=== PATIENT | male | born 1985 | race Caucasian/White ===

== ENCOUNTER → 2017-01-13 | Outpatient (CLI) | payer BC ==
[~2017-01-13] MED LIST: CIPR-255 PO; HYDR-5688 PO
--- NOTE | 2017-01-13 11:19 | DIAGNOSTIC IMAGING REPORT ---
ULTRASOUND RIGHT UPPER QUADRANT ABDOMEN CLINICAL HISTORY: Right upper quadrant abdominal pain. COMPARISON STUDY: No priors. TECHNIQUE: Real-time, grayscale, and color flow sonography of the right upper quadrant of the abdomen was performed. Images are reviewed in the transverse and longitudinal planes. FINDINGS: Liver: The liver is normal in size and echotexture. There is no intrahepatic biliary ductal dilatation. The main portal vein is patent. Gallbladder: The gallbladder is distended. Shadowing gallstones and biliary sludge are identified. A 2.3 cm stone appears to be lodged in the gallbladder neck. The gallbladder wall is thickened measuring up to 4 mm. Trace pericholecystic fluid is identified and a sonographic Sue's sign is present. The common bile duct measures up to 0.3 cm in diameter. Pancreas: Visualized portions of the pancreatic head and body are normal in appearance. Right kidney: Survey images of the right kidney demonstrate normal size and echotexture. There is no hydronephrosis. Ascites: None. IMPRESSION: Cholelithiasis with evidence of acute cholecystitis. Surgical consultation is advised. Electronically signed by: Garfield Dye M.D. 01/13/2017 11:17 AM Dictated Date/Time: 01/13/2017 11:16 AM
== END | disposition home or self-care (01) ==
LOC: C.ULTR 10:37
PROVIDERS: ATTEND Family Medicine
DX: K80.00 Calculus of gallbladder with acute cholecystitis without obstruction (principal)

== ENCOUNTER 2017-01-15 09:20 | Observation (INO) | payer BC ==
[~2017-01-15] VITALS: Ht 182.9 cm; Wt 94.0 kg
[2017-01-15] VITALS (9 sets, daily range): BP systolic 124–142; BP diastolic 75–89; PULSE 58–77; TEMP 36.6–37.2; O2SAT 96–100; Ht 182.9 cm; Wt 94.0 kg
--- NOTE | 2017-01-15 10:59 | History and Physical ---
History & Physical Date Jan 15, 2017. Chief Complaint abd pain History of Present Illness The patient is a 31 year old male with complaints of upper abd pain and more to RUQ recent findings of Lg gallstones with one in neck of gallbladder and wall edema c/w acute chlolecystitis Additional History Hepatic Disease: No Kidney Disease: No Hypertension: No Heart Disease: No Allergies Coded Allergies: No Known Allergies (Unverified , 12/26/14) Home Medications No Active Prescriptions or Reported Meds Physical Examination Skin: warm/dry Eyes: sclerae normal Head: atraumatic Neck: supple Respiratory/Chest: no respiratory distress Cardiovascular: regular rate, rhythm Abdomen / GI: normal bowel sounds (mild RUQ tenderness) Extremities: normal inspection Neurologic/Psych: alert Diagnosis acute cholecystitis Plan of Treatment admit for laparoscopic cholecystectomy, observation
[2017-01-15] MEDS ORDERED: CEFOXITIN SOD 2 GM VIAL IV STA (11:20)
[2017-01-15] MEDS ORDERED: ONDANSETRON INJ 2 MG/ML 2 ML VIAL IV PRN ×2 (11:30→15:45)
[2017-01-15] MEDS ORDERED: PROMETHAZINE HCL INJ 12.5 MG in SODIUM CHLORIDE 0.9% 50ML 50 ML IV PRN (11:30)
[2017-01-15] MEDS ORDERED: HYDROmorphone INJ 1 MG/ML SYR IV PRN ×2 (11:30→15:45)
[2017-01-15] MEDS ORDERED: PROMETHAZINE HCL INJ 25 MG in SODIUM CHLORIDE 0.9% 50ML 50 ML IV PRN (11:30)
[2017-01-15] MEDS ORDERED: CEFOXITIN IV 2,000 MG in DEXTROSE 5% 50ML 50 ML IV ONE (12:00)
[2017-01-15] MEDS: LACTATED RINGER'S 1000ML 1,000 ML IV SCH (12:04)
[2017-01-15] MEDS ORDERED: IV FLUIDS COMPLETED PRN (12:30)
[2017-01-15] MEDS ORDERED: CEFOXITIN SOD 2 GM VIAL ONE (15:17)
[2017-01-15] MEDS ORDERED: BUPIVACAINE 0.5 % 5 MG/1 ML MPF 30ML VIAL ONE (15:17)
[2017-01-15] MEDS ORDERED: FENTANYL CITRATE INJ 50 MCG/1 ML 2 ML VIAL ONE ×2 (15:20→16:06)
[2017-01-15] MEDS ORDERED: MIDAZOLAM HCL 1 MG/ML 2ML VIAL ONE (15:20)
[2017-01-15] MEDS ORDERED: LACTATED RINGER'S 1000ML 1,000 ML IV PRN (15:41)
[2017-01-15] MEDS ORDERED: METOCLOPRAMIDE HCL INJ 5 MG/ML 2 ML VIAL IV PRN (15:45)
[2017-01-15] MEDS ORDERED: DiphenhydrAMINE HCL 50 MG/ML VIAL IV PRN (15:45)
[2017-01-15] MEDS ORDERED: PROPOFOL IV EMULSION 10 MG/ML 20 ML VIAL IV ONE (16:25)
[2017-01-15] MEDS ORDERED: ONDANSETRON INJ 2 MG/ML 2 ML VIAL ONE (16:25)
[2017-01-15] MEDS ORDERED: GLYCOPYRROLATE INJ 0.2 MG/ML VIAL ONE (16:25)
[2017-01-15] MEDS ORDERED: LIDOCAINE HCL 2% 2 ML VIAL (20MG/ML) ONE (16:25)
[2017-01-15] MEDS ORDERED: ROCURONIUM BROMIDE 10 MG/ML 5 ML VIAL ONE (16:25)
[2017-01-15] MEDS ORDERED: KETOROLAC TROMETHAMINE 30 MG/ML VIAL ONE (16:25)
[2017-01-15] MEDS ORDERED: NEOSTIGMINE METHYLSULFATE 5 MG/5 ML SYR ONE (16:25)
[2017-01-15] MEDS ORDERED: DEXAMETHASONE SOD INJ 4 MG/ML VIAL ONE (16:25)
--- NOTE | 2017-01-15 17:14 | [facility] Post Operative Brief Note ---
Immediate Operative Summary Operative Date Jan 15, 2017. Pre-Operative Diagnosis Acute Cholelithasis Post-Operative Diagnosis Acute Chronic Cholelithasis, hemorrhagic Procedure(s) Performed Laparoscopic Cholecystectomy Surgeon Dr. Huber Sena Business Travel Consultant Surgeon(s) None Estimated Blood Loss 20ML Findings hydrops, hemorrhage w/n wall- severe edema, stone in neck Specimens Specimen A. Gallbladder Drains #[address] Rd NAYAN to subhep space Anesthesia gen Complication(s) None Disposition Recovery Room / PACU
[2017-01-15] MEDS: FENTANYL CITRATE INJ 50 MCG/1 ML 2 ML VIAL IV PRN ×2 (17:20→17:25)
--- NOTE | 2017-01-15 17:33 | OPERATIVE REPORT ---
DATE OF OPERATION: 01/15/2017 NAME OF OPERATION: Laparoscopic cholecystectomy. PREOPERATIVE DIAGNOSIS: Acute cholecystitis. POSTOPERATIVE DIAGNOSIS: Acute cholecystitis with acute chronic and hemorrhagic cholecystitis. STAFF SURGEON: Huber Sena MD ANESTHESIA: General. PROCEDURE: The patient was brought in the operating room and placed on the operating table in supine position. His abdomen was prepped and draped in usual fashion. Pneumatic stockings and orogastric tube were placed. Incision was made above the umbilicus using 0.5% plain Marcaine to anesthetize all incisions. Dissection was carried down to the fascia. A Veress needle placed. Pneumoperitoneum produced. An 11 mm port placed at this level and then under visualization, three 5 mm ports placed; 1 cephalad and 2 laterally. Gallbladder was thickened, hemorrhagic, very distended; all consistent with acute hemorrhagic cholecystitis. There was a stone lodged in the neck of the gallbladder. Bile was aspirated, it was clear and then some green, but mostly hydrops. At this point, dissection was carried out at the huong hepatis, identified severe edema. Cystic duct and cystic artery were identified, clipped and transected and the gallbladder dissected away from the liver bed. There was severe edema in the posterior wall with it almost peeling away from the liver. Cautery was used. Gallbladder was then placed into an Endobag and then a #15 round [place] drain placed into the lateral 5 mm port into the subhepatic space, secured to the skin using 3-0 nylon suture and placed to a bulb. All ports were removed. The 5 mm scope was then used to remove the gallbladder through the umbilicus. I had to increase the skin incision and fascial incision because of very large stones within the gallbladder. The fascia was then closed using interrupted 0 PDS suture, subcutaneous tissue reapproximated using 2-0 plain catgut suture then the skin reapproximated using 5-0 Prolene suture. The patient was transferred to recovery room in stable condition. I attest to the content of the Intraoperative Record and any orders documented therein. Any exceptio ns are noted below.
--- NOTE | 2017-01-15 17:35 | Anesthesiology Progress Note ---
Anesthesia Post Op Note Date & Time Jan 15, 2017 at 17:35 Vital Signs Pain Intensity: 5 Vital Signs Past 12 Hours Date Time Temp Pulse Resp B/P Pulse Ox O2 Delivery O2 Flow Rate FiO2 01/15/17 17:25 60 16 135/77 100 Nasal Cannula 3 01/15/17 17:15 59 16 124/78 100 Nasal Cannula 3 01/15/17 17:05 85 16 138/89 100 Mask 10 01/15/17 17:03 36.3 89 16 144/83 100 Mask 10 01/15/17 15:15 Room Air 01/15/17 14:53 37.2 77 18 142/89 100 Room Air 01/15/17 11:06 37.0 72 12 133/81 Room Air Notes Mental Status: alert / awake / arousable, participated in evaluation Pt Amnestic to Procedure: Yes Nausea / Vomiting: adequately controlled Pain: adequately controlled Airway Patency, RR, SpO2: stable & adequate BP & HR: stable & adequate Hydration State: stable & adequate Anesthetic Complications: no major complications apparent Pt doing well. Pain tolerable.
[2017-01-15] MEDS: CEFOXITIN IV 1,000 MG in DEXTROSE 5% 50ML 50 ML IV SCH (20:19)
[2017-01-15] MEDS: HYDROmorphone INJ 0.5 MG/0.5 ML SYR IV PRN (21:12)
[2017-01-16] MEDS: LACTATED RINGER'S 1000ML 1,000 ML IV SCH (01:30)
[2017-01-16] MEDS: CEFOXITIN IV 1,000 MG in DEXTROSE 5% 50ML 50 ML IV SCH ×3 (03:43→19:50)
[2017-01-16 03:53] VITALS: BP 122/79; PULSE 55; TEMP 36.6; O2SAT 97
--- NOTE | 2017-01-16 06:15 | Surgery Progress Note ---
Surgery Progress Note Date of Service Jan 16, 2017. Subjective + feeling well, No nausea, No vomiting Objective Vital Signs: Date Time Temp Pulse Resp B/P Pulse Ox O2 Delivery O2 Flow Rate FiO2 01/16/17 03:53 36.6 55 14 122/79 97 Room Air 01/15/17 23:45 Room Air 01/15/17 23:26 36.7 58 14 127/81 96 Room Air 01/15/17 20:51 36.6 69 16 124/78 96 Room Air 01/15/17 20:02 37.0 74 16 136/79 97 Room Air 01/15/17 18:57 37.1 66 16 135/79 97 Room Air 01/15/17 18:24 36.9 65 16 125/78 97 Room Air 01/15/17 18:00 Nasal Cannula 2.0 01/15/17 17:54 98 Room Air 01/15/17 17:50 36.7 14 124/75 98 Room Air 01/15/17 17:45 80 16 121/74 100 Nasal Cannula 3 01/15/17 17:35 36.5 56 16 126/74 100 Nasal Cannula 3 01/15/17 17:25 60 16 135/77 100 Nasal Cannula 3 01/15/17 17:15 59 16 124/78 100 Nasal Cannula 3 01/15/17 17:05 85 16 138/89 100 Mask 10 01/15/17 17:03 36.3 89 16 144/83 100 Mask 10 01/15/17 15:15 Room Air 01/15/17 14:53 37.2 77 18 142/89 100 Room Air 01/15/17 11:06 37.0 72 12 133/81 Room Air General Appearance: no apparent distress Respiratory/Chest: no respiratory distress Abdomen: soft Incision(s): intact, drainage (serosang- expected, nonbilious) Laboratory Results: Results Past 24 Hours Test 01/16/17 05:00 Range/Units Assessment & Plan 01/16/17- s/p lap guille- acute , hemorrhagic cholecystitis- doing well cont IV atbx, adv diet- likely d/c tomorrow
[2017-01-16 07:13] LABS: HEMATOCRIT 40.8 % (42-52); MEAN CELL VOLUME 79.5 fL (80-100); MEAN CORPUSCULAR HEMOGLOBIN 26.7 pg (25-34); MEAN CORPUSCULAR HGB CONC 33.6 g/dl (32-36); MEAN PLATELET VOLUME 10.8 fL (7.4-10.4); PLATELET COUNT 259 K/uL (130-400); RED BLOOD COUNT 5.13 M/uL (4.7-6.1); WHITE BLOOD COUNT 11.71 K/uL (4.8-10.8)
[2017-01-16 07:35] VITALS: BP 119/75; PULSE 58; TEMP 36.7; O2SAT 98
[2017-01-16 07:50] LABS: BUN/CREATININE RATIO 8.5 (10-20); CALCIUM 8.8 mg/dl (8.5-10.1); CREATININE 0.88 mg/dl (0.60-1.40)
[2017-01-16 07:55] LABS: ALB/GLOB RATIO 1.2 (0.9-2)
[2017-01-16] MEDS: HYDROmorphone INJ 0.5 MG/0.5 ML SYR IV PRN (09:58)
[2017-01-16] MEDS ORDERED: HYDROCODONE/ACETAMOPHEN 5/325MG TAB PO PRN (11:45)
[2017-01-16] MEDS ORDERED: NURSING VERBAL MED ORDER ONE (13:15)
[2017-01-16] MEDS: HYDROCODONE/ACETAMOPHEN 5/325MG TAB PO PRN ×2 (13:48→18:07)
[2017-01-16] MEDS ORDERED: ENOXAPARIN 40 MG/0.4 ML SYR SQ ONE (14:00)
--- NOTE | 2017-01-16 15:15 | DIAGNOSTIC IMAGING REPORT ---
ULTRASOUND BILATERAL LOWER EXTREMITY VENOUS CLINICAL HISTORY: Leg pain. COMPARISON STUDY: No priors. TECHNIQUE: Real-time, grayscale, and color Doppler sonography of the deep veins of the right and left lower extremity was performed from the inguinal crease to the calf. Compression and augmentation were utilized. FINDINGS: There is no sonographic evidence of deep venous thrombosis identified in the right or left lower extremity. The common femoral, superficial femoral, and popliteal veins are patent and normally compressible bilaterally. The greater saphenous vein and the profunda femoris vein at the junction with the common femoral vein are clear in both legs. The visualized calf veins are patent bilaterally. IMPRESSION: There is no sonographic evidence of deep venous thrombosis identified in the right or left lower extremity. Electronically signed by: Garfield Dye M.D. 01/16/2017 3:14 PM Dictated Date/Time: 01/16/2017 3:13 PM
[2017-01-16 15:23] VITALS: BP 127/77; PULSE 62; TEMP 36.5; O2SAT 98
[2017-01-16] MEDS ORDERED: CIPR-255 PO (19:42)
[2017-01-16] MEDS ORDERED: HYDR-5688 PO (19:42)
--- NOTE | 2017-01-16 19:44 | Discharge Instructions ---
Discharge Instructions Admission Reason for Admission: Acute Cholecystitis Discharge Discharge Diagnosis / Problem: acute cholecystitis Discharge Goals Goal(s): Decrease discomfort, Improve function, Improve disease control Activity Recommendations Activity Limitations: as noted below Lifting Limitations: no more than 25 pounds Exercise/Sports Limitations: until after follow-up appointment May Resume Sexual Activity: when tolerated Shower/Bathe: no limitations (may shower, no bath for 1 week) Driving or Machine Use: resume 3 days after discharge SPECIAL CARE INSTRUCTIONS: * Cover incisions and change daily for comfort/drainage. * Empty drain 2-3 times per day and record. * May use ibuprofen for pain as tolerated. * Expect some swelling and bruising. Call your doctor if: * Temperature above 101 degrees * Pain not relieved by pain medicine ordered * There is increased drainage or redness from any incision * You have any unanswered questions or concerns [phone]. FOLLOW UP VISIT: If not already scheduled, please call the office for a follow-up visit. for 01/20- drain removal and wound check OFFICE PHONE NUMBER: Dr. Sena Office . Current Hospital Diet Patient's current hospital diet: Clear Liquid Diet Discharge Diet Recommended Diet: Regular Diet Procedures Procedures Performed: Laparoscopic Cholecystectomy Pending Studies Studies pending at discharge: no Medical Emergencies . Who to Call and When: Medical Emergencies: If at any time you feel your situation is an emergency, please call 911 immediately. . Non-Emergent Contact Non-Emergency issues call your: Primary Care Provider, Surgeon . "Provider Documentation" section prepared by Huber Sena. VTE Core Measure Inpt VTE Proph given/why not?: Enoxaparin (Lovenox)SQ, SCD's
[2017-01-16 23:15] VITALS: BP 122/71; PULSE 71; TEMP 36.7; O2SAT 98
[2017-01-17] MEDS: HYDROCODONE/ACETAMOPHEN 5/325MG TAB PO PRN (00:02)
[2017-01-17] MEDS: CEFOXITIN IV 1,000 MG in DEXTROSE 5% 50ML 50 ML IV SCH ×3 (04:04→19:30)
--- NOTE | 2017-01-17 06:56 | Surgery Progress Note ---
Surgery Progress Note Date of Service Jan 17, 2017. Subjective some gas pains - mild bloating Objective Vital Signs: Date Time Temp Pulse Resp B/P Pulse Ox O2 Delivery O2 Flow Rate FiO2 01/17/17 00:02 Room Air 01/16/17 23:15 36.7 71 16 122/71 98 Room Air 01/16/17 15:30 Room Air 01/16/17 15:23 36.5 62 16 127/77 98 Room Air 01/16/17 09:30 Room Air 01/16/17 07:35 36.7 58 17 119/75 98 Room Air General Appearance: no apparent distress Respiratory/Chest: no respiratory distress Abdomen: normal bowel sounds (active bs, mild distention) Incision(s): intact Assessment & Plan 01/17/17- cont to monitor- not surprising may have mild ileus with severity of cholecystitis. cont IV antibiotics ambulate 01/16/17- s/p lap guille- acute , hemorrhagic cholecystitis- doing well cont IV atbx, adv diet- likely d/c tomorrow 01/16/17- s/p lap guille- acute , hemorrhagic cholecystitis- doing well cont IV atbx, adv diet- likely d/c tomorrow
[2017-01-17 07:05] VITALS: BP 149/92; PULSE 81; TEMP 36.9; O2SAT 98
[2017-01-17 07:20] VITALS: O2SAT 98
[2017-01-17] MEDS: ENOXAPARIN 40 MG/0.4 ML SYR SQ SCH (08:01)
[2017-01-17] MEDS: LACTATED RINGER'S 1000ML 1,000 ML IV SCH (13:56)
[2017-01-17 15:15] VITALS: BP 128/82; PULSE 81; TEMP 37.3; O2SAT 97
[2017-01-17 23:00] VITALS: BP 136/83; PULSE 75; TEMP 36.7; O2SAT 96
[2017-01-18] MEDS: LACTATED RINGER'S 1000ML 1,000 ML IV SCH ×2 (02:40→15:59)
[2017-01-18] MEDS: CEFOXITIN IV 1,000 MG in DEXTROSE 5% 50ML 50 ML IV SCH ×3 (03:56→19:57)
[2017-01-18 05:04] LABS: HEMATOCRIT 38.3 % (42-52); MEAN CELL VOLUME 79.8 fL (80-100); MEAN CORPUSCULAR HEMOGLOBIN 26.5 pg (25-34); MEAN CORPUSCULAR HGB CONC 33.2 g/dl (32-36); MEAN PLATELET VOLUME 10.3 fL (7.4-10.4); PLATELET COUNT 212 K/uL (130-400); WHITE BLOOD COUNT 7.09 K/uL (4.8-10.8)
[2017-01-18 05:32] LABS: BUN/CREATININE RATIO 6.2 (10-20); CALCIUM 8.4 mg/dl (8.5-10.1); CREATININE 1.2 mg/dl (0.60-1.40); MAGNESIUM 1.9 mg/dl (1.8-2.4); POTASSIUM 3.7 mmol/L (3.5-5.1)
[2017-01-18 05:34] LABS: ALB/GLOB RATIO 1.2 (0.9-2); PHOSPHORUS 3.7 mg/dl (2.5-4.9)
[2017-01-18 07:03] VITALS: BP 128/81; PULSE 70; TEMP 36.7; O2SAT 97
[2017-01-18] MEDS: ENOXAPARIN 40 MG/0.4 ML SYR SQ SCH (08:12)
--- NOTE | 2017-01-18 09:17 | Anesthesiology Progress Note ---
Anesthesia Post Op Note Date & Time Jan 18, 2017 at 09:17 Vital Signs Pain Intensity: 0.0 Vital Signs Past 12 Hours Date Time Temp Pulse Resp B/P Pulse Ox O2 Delivery O2 Flow Rate FiO2 01/18/17 07:47 Room Air 01/18/17 07:03 36.7 70 16 128/81 97 Room Air 01/17/17 23:55 Room Air 01/17/17 23:00 36.7 75 16 136/83 96 Room Air Notes Mental Status: alert / awake / arousable, participated in evaluation Pt Amnestic to Procedure: Yes Nausea / Vomiting: adequately controlled Pain: adequately controlled Airway Patency, RR, SpO2: stable & adequate BP & HR: stable & adequate Hydration State: stable & adequate Anesthetic Complications: no major complications apparent
[2017-01-18 15:32] VITALS: BP 116/76; PULSE 73; TEMP 36.5; O2SAT 99
[2017-01-18 23:11] VITALS: BP 125/76; PULSE 69; TEMP 36.7; O2SAT 97
[2017-01-19] MEDS: CEFOXITIN IV 1,000 MG in DEXTROSE 5% 50ML 50 ML IV SCH (04:12)
[2017-01-19] MEDS: LACTATED RINGER'S 1000ML 1,000 ML IV SCH (04:12)
[2017-01-19 05:49] LABS: HEMATOCRIT 38.6 % (42-52); MEAN CELL VOLUME 80.8 fL (80-100); MEAN CORPUSCULAR HEMOGLOBIN 26.2 pg (25-34); MEAN CORPUSCULAR HGB CONC 32.4 g/dl (32-36); MEAN PLATELET VOLUME 10.6 fL (7.4-10.4); PLATELET COUNT 210 K/uL (130-400); RED BLOOD COUNT 4.78 M/uL (4.7-6.1); WHITE BLOOD COUNT 5.53 K/uL (4.8-10.8)
[2017-01-19 06:29] LABS: CREATININE 0.89 mg/dl (0.60-1.40)
[2017-01-19 07:16] VITALS: BP 127/78; PULSE 60; TEMP 36.5; O2SAT 96
--- NOTE | 2017-01-19 07:27 | DISCHARGE SUMMARY ---
PRINCIPAL DIAGNOSIS: Necrotizing cholecystitis. PROCEDURES: The patient underwent laparoscopic cholecystectomy with drainage. HISTORY OF PRESENT ILLNESS: The patient is a 31-year-old male who presented to his medical doctor's office with abdominal pain, found on imaging to have a thickened gallbladder, all consistent with acute cholecystitis. He was seen in my office and I admitted him to the hospital for laparoscopic cholecystectomy. HOSPITAL COURSE: He was brought into the hospital on 01/15/2017. He was taken to the operating room where he underwent laparoscopic cholecystectomy with drain placement. He had relatively severe acute cholecystitis. The patient has done quite well on IV antibiotics, progressing in both diet and activity and felt stable for discharge home today to be followed in the surgical clinic this week.
[2017-01-19 08:19] VITALS: BP 127/78; PULSE 60; TEMP 36.5; O2SAT 96
== END 2017-01-19 09:55 | disposition home or self-care (01) ==
LOC: C.MSN 10:33
PROVIDERS: ADMIT Surgery; ATTEND Surgery
DX: K80.12 Calculus of gallbladder with acute and chronic cholecystitis without obstruction (principal)